=== PATIENT | male | born 1960 | race Caucasian/White ===

== ENCOUNTER 2021-09-30 07:02 | Day surgery (SDC) | payer BC ==
[2021-09-27 17:13] LABS: Absolute Lymphocytes (CBC) 1.7 K/uL (0.7-4.9); Hematocrit 40.4 % (39.6-49.0); Lymphocytes % 22.4 % (15.3-44.8); MCV 98.1 fL (80-100); MPV 7.1 fL (7.6-11.3); RBC Red Blood Cell Count 4.12 M/uL (4.33-5.43)
[2021-09-27 17:27] LABS: Potassium 4.1 mmol/L (3.5-5.1)
[2021-09-27 17:35] LABS: SARS-CoV-2 Antigen Rapid Res Negative (Negative)
--- NOTE | 2021-09-27 18:18 | RAD REPORT ---
EXAM DESCRIPTION: RAD - Chest Pa And Lat (2 Views) - 09/27/2021 6:08 pm CLINICAL HISTORY: pre op for surgery Chest pain. COMPARISON: Chest Pa And Lat (2 Views) dated 07/17/2018 FINDINGS: The lungs are clear. The heart is normal in size. Tortuous thoracic aorta. No displaced fr actures. IMPRESSION: No acute or concerning finding suspected.
--- NOTE | 2021-09-28 06:25 | EKG ---
Test Date: 2021-09-27 Test Time: 16:26:37 Freight Breaker: KANDACE MEASUREMENT RESULTS: Intervals: Rate: 65 WA: 174 QRSD: 96 QT: 392 QTc: 407 [place]: P: 36 WA: 174 QRS: 43 T: 30 INTERPRETIVE STATEMENTS: Normal sinus rhythm Normal ECG Compared to ECG 07/17/2018 17:51:49 Sinus bradycardia no longer present Left ventricular hypertrophy no longer present Electronically Signed On 09-28-21 06:23:48 CDT by Nikhil Benitez
[2021-09-30] MEDS ORDERED: CEFAZOLIN SODIUM 1 GM/VIAL ONE (07:39)
[2021-09-30] MEDS ORDERED: Ringers Lactate 1,000 ML IV ONE (07:40)
[2021-09-30] MEDS ORDERED: NA CHLORIDE 0.9% 50 ML ONE (07:40)
[2021-09-30] MEDS ORDERED: propofoL 200 MG/20 ML VIAL IV ONE (08:55)
[2021-09-30] MEDS ORDERED: LIDOCAINE 1% MPF 5 ML VIAL ONE (08:55)
[2021-09-30] MEDS ORDERED: FENTANYL CITR 100 MCG/2 ML ONE (08:55)
[2021-09-30] MEDS ORDERED: MIDAZOLAM HCL 2 MG/2 ML INJ ONE (08:55)
[2021-09-30] MEDS ORDERED: KETOROLAC 30 MG/ML INJ ONE (09:24)
[2021-09-30] MEDS ORDERED: dexAMETHasone 10 MG/ML VIAL ONE (09:24)
[2021-09-30] MEDS ORDERED: ONDANSETRON 4 MG/2 ML VIAL ONE (09:24)
[2021-09-30] MEDS ORDERED: Mastisol Adhesive Liq ONE (09:52)
[2021-09-30] MEDS ORDERED: HYDROCODONE/APAP 7.5/325 MG TAB PO PRN (10:13)
--- NOTE | 2021-09-30 10:19 | P.OP ---
Date of Service: 09/30/21 Brief Op Note Pre-op Dx--[facility] Post-op Dx --Same Procedure--Repair [facility] Surgeon--Jesus Ruiz MD Manager Report--Viridiana LIZ EBL--Minimal Specimen--Hernia Sac and cord lipoma Findings--as above Anaesthesia--General Complications--None Patient tolerated the procedure in stable condition and taken to in good general condition.
[2021-09-30 10:34] VITALS: TEMP 97.2; O2SAT 100
[2021-09-30 10:53] VITALS: BP 124/85
--- NOTE | 2021-10-01 02:36 | OP ---
Date of Procedure: 09/30/2021 Surgeon: Jesus Ruiz MD Poultry Farmer Meat: AGUSTO Barriga. Preoperative Diagnosis: Right inguinal hernia. Postoperative Diagnosis: Right inguinal hernia. Procedure: Repair of right inguinal hernia. Estimated Blood Loss: Minimal. Specimen: Hernia sac and cord lipoma. Finding: As above. Anesthesia: General. Complications: None. Disposition: The patient tolerated the procedure in stable condition, taken to recovery in good general condition. Description Of Operation: The patient was brought to the OR and placed in the supine position. General anesthesia was begun. The patient was prepped and draped in usual sterile fashion. Then, Marcaine 0.5% was infiltrated in a field block fashion in the right groin. A 15-blade was used to make a 4 cm incision between the pubic tubercle and the anterior iliac superior spine. Subcutaneous tissue was divided. Arabella's fascia was identified and divided. Aponeurosis was identified and mobilized inferiorly to expose shelving edge and then opened through the external ring. Ilioinguinal nerve was identified and protected dissection, cord mobilized with pubic tubercle and skeletonized. Large indirect sac and cord lipoma were identified, both excised. The base of the sac was tied off with 2-0 Prolene suture ligature in a free-hand tie. Subsequently, Marlex mesh plug was placed in the internal ring and secured with VersaTack stapler. An onlay mesh was placed on the inguinal floor and secured medially to the pubic tubercle, superiorly to the conjoint tendon, inferiorly to the shelving edge, and laterally to each other. Then, cord structure and ilioinguinal nerve were placed back in its anatomic location. Aponeurosis was closed with 2-0 Prolene. A 2-0 chromic was used to close Arabella's fascia and a 2-0 chromic was used to close the skin. Sterile dressing was applied. The patient was awakened and taken to recovery in good general condition. Discharge Note: The patient will go to Day Surgery and home when stable. Disposition: Home. Condition: Stable. Discharge Instructions: Resume home meds and diet. Activity as tolerated. No heavy lifting. Remove outer dressing in 2 days, shower. Keep wound clean and dry. Keep Steri-Strips on at all times. Ice pack and incentive spirometry as ordered. Follow up in my office in 1 week. Call for appointment. Tylenol No. 3 one tablet p.o. q.4 h. p.r.n. pain. /MODL Voice ID: [id number] Report ID: [id number]
== END 2021-09-30 12:05 | disposition home or self-care (01) ==
LOC: OR 07:02
PROVIDERS: ATTEND Surgery
PROC: 0YU50JZ Supplement Right Inguinal Region with Synthetic Substitute, Open Approach (ICD-10-PCS; principal; 2021-09-30 08:45)
DX: K40.90 Unilateral inguinal hernia, without obstruction or gangrene, not specified as recurrent (principal); Z20.822 Contact with and (suspected) exposure to COVID-19
CPT/HCPCS: 93005; 85025; 80048; 36415; 88302; 71046; 87811; 49505; J2704; J2250; J3010; J1100; J7120; J2405; J0690